=== PATIENT | female | born 1955 | race Caucasian/White ===

== ENCOUNTER → 2016-09-11 | Outpatient (CLI) | payer BC, OTHER ==
[~2016-09-11] MED LIST: CALC600T21 PO; LEVO25TA5 PO; LOVA20TA2 PO; MULT1CHW39 PO; VITA200025 PO
--- NOTE | 2016-09-11 14:02 | ECGEPIP ---
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
== END ==
LOC: M EKG 10:49
PROVIDERS: ATTEND Anesthesiology
DX: Z01.818 Encounter for other preprocedural examination (principal); E03.9 Hypothyroidism, unspecified

== ENCOUNTER → 2016-09-14 | Day surgery (SDC) | payer BC, OTHER ==
[~2016-09-14] VITALS: Ht 160 cm; Wt 59.0 kg
[~2016-09-14] MED LIST changes: +ACETAMINOPH W/CODEINE #3 TAB UD PO PRN; +EPINEPHrine 1MG/ML INJ 30ML MD-VIAL As Ordered ONE; +LIDOCAINE 1% MDV 20ML VIAL SC PRN; +LIDOCAINE PRES-FREE 2% 10ML AMP As Ordered ONE; +LIDOCAINE W/EPINEPHRINE 1% 20ML VIAL As Ordered ONE; +LR 1,000 ML IV ONE; +LR 1,000 ML IV SCH; +METHYLENE BLUE 0.5% (5MG/ML) 10 ML AMP (PROVAYBLUE)(Q9968 PER 1MG) As Ordered ONE; +MIDAZOLAM INJ 2 MG/2 ML VIAL (J2250) As Ordered ONE; +MORPHINE 10 MG/ML 1ML VIAL IV PRN; +ONDANSETRON 4MG/2ML VIAL (J2405) As Ordered ONE; +ONDANSETRON 4MG/2ML VIAL (J2405) IV PRN; +PROPOFOL 200 MG/20 ML VIAL As Ordered ONE; +ROCURONIUM BROMIDE 50 MG/5 ML VIAL As Ordered ONE; +SUCCINYLCHOLINE 100 MG/5 ML SYRINGE (J0330) As Ordered ONE; +dexameTHASONE 4 MG/ML 1ML VIAL (J1100) As Ordered ONE; +ePHEDrine SULFATE 25 MG/5 ML(5MG/ML) SYRINGE As Ordered ONE; +fentaNYL 100 MCG/2 ML INJECTION (J3010) As Ordered ONE; +fentaNYL 100 MCG/2 ML INJECTION (J3010) IV PRN
[2016-09-14 12:20] VITALS: BP 118/68
--- NOTE | 2016-09-14 22:04 | RO ---
DATE OF PROCEDURE: 09/14/2016 PREPROCEDURE DIAGNOSIS: Nasal valve collapse. POSTPROCEDURE DIAGNOSIS: Nasal valve collapse. PROCEDURE: Nasal valve repair using a nasal cartilage graft. SURGEON: Dr. Hilton Crane ELECTRICIAN OFFICE: ANESTHESIA: DESCRIPTION OF PROCEDURE: Under general anesthesia with the patient intubated, the patient was prepped and draped in the usual manner. I made an incision anterior inside the nose and elevated subperichondrial, periosteal plane off the septum. I then harvested some septal cartilage. I did remove some ethmoid plate. Once this was done, then I made a columellar incision and bilateral rim incisions and elevated the tissues off of the dorsum of the nose. I divided the medial crura of the lower lateral cartilage down to the base. I then put a cartilage strut graft in this area and sutured in with #4-0 Vicryl. I sutured the base of the medial crura of the lower lateral cartilage together. Once this was done, then I divided the septum from the upper lateral cartilage on the right side and then I took a piece of cartilage and put that between the upper lateral cartilage and the septum on that side. I sutured in with #4-0 Vicryl. Once done with that, I closed the incision with #4-0 Vicryl and #5-0 nylon. I then made an incision anterior to the nasal bone on the right side inferiorly inside the nose and elevated the periosteum. I drilled two holes in it and then put a suture through the hole and through the inferolateral aspect of the lower lateral cartilage. I sutured that to keep the lateral aspect of the valve open. The patient tolerated the procedure well. Less than 25 mL estimated blood loss. The patient then was extubated and transferred to the recovery room in excellent condition.
== END | disposition home or self-care (01) ==
LOC: M SDC 06:59
PROVIDERS: ATTEND Otolaryngology
DX: J34.89 Other specified disorders of nose and nasal sinuses (principal); E78.00 Pure hypercholesterolemia, unspecified; E03.9 Hypothyroidism, unspecified; J30.2 Other seasonal allergic rhinitis; R06.83 Snoring; Z78.0 Asymptomatic menopausal state; Z79.899 Other long term (current) drug therapy
CPT/HCPCS: 30465; 88300; J0330; J1100; J2250; J2405; J3010; Q9968